=== PATIENT | female | born 1960 | race Caucasian/White ===

== ENCOUNTER 2021-04-17 10:07 | Outpatient (CLI) | payer OTHER | END 2021-04-17 11:13 | disposition home or self-care (01) | LOC: LAB 10:07 | PROVIDERS: ATTEND Internal Medicine Sports Medicine | DX: C73 Malignant neoplasm of thyroid gland (principal); E89.0 Postprocedural hypothyroidism ==

== ENCOUNTER → 2022-12-19 06:18 | Outpatient (CLI) | payer OTHER ==
[2022-12-19 09:24] LABS: T4 FREE 0.38 NG/ML (0.76-1.46); TSH 89.1 uIU/mL (0.358-3.74)
== END | disposition home or self-care (01) ==
LOC: LAB 06:18
PROVIDERS: ATTEND Internal Medicine Sports Medicine
DX: C73 Malignant neoplasm of thyroid gland (principal); E89.0 Postprocedural hypothyroidism

== ENCOUNTER 2024-01-21 07:44 | Outpatient (CLI) | payer OTHER ==
[2024-01-21 09:49] LABS: T4 FREE 0.87 NG/ML (0.76-1.46)
[2024-01-21 09:52] LABS: TSH 5.95 uIU/mL (0.358-3.74)
== END 2024-01-21 07:53 | disposition home or self-care (01) ==
LOC: LAB 07:44
PROVIDERS: ATTEND Internal Medicine Sports Medicine
DX: C73 Malignant neoplasm of thyroid gland (principal); E89.0 Postprocedural hypothyroidism

== ENCOUNTER 2024-01-21 08:23 | Outpatient (CLI) | payer OTHER | END 2024-01-21 08:35 | disposition home or self-care (01) | LOC: SONOGRAMA 08:23 | PROVIDERS: ATTEND Internal Medicine Sports Medicine | DX: C73 Malignant neoplasm of thyroid gland (principal) ==